=== PATIENT | male | born 2000 | race Caucasian/White ===

== ENCOUNTER 2024-12-25 09:51 | Outpatient (AMB) | payer OTHER, SELFPAY ==
--- NOTE | 2024-12-25 10:05 | A.OFFVIS_ITS ---
Intake Visit Reasons: intermittent hematuria Intake Note: New Patient is present for intermittent Hematuria Urology Rx:none Blood Thinners:none Imaging completed: none [place] Actor Required: No Accompanied by: Self / Same As Patient Allergies No Known Allergies Allergy (Verified 12/25/24 10:07) HPI Comments Details: Frankie is a pleasant male. He is a patient of Dr. Hill. He is seen for the following urologic conditions - microscopic hematuria - bladder outlet obstruction Microscopic hematuria States he has occasionally seen blood in urine Is associated with constipation Discussed use of Flomax Bladder outlet obstruction Has noticed over past 18 months that has weakness of stream Prolonged voiding time Likely trapped prostate Trial Flomax Follow-up uroflow Review of Systems Const Denies chills and Denies fever(s) Card Reports no additional complaints and Denies syncope Resp Denies cough GI Denies abdominal pain and Denies heartburn Reports as per HPI and Denies change in libido Neuro Denies syncope Psych Denies change in libido Endo Denies change in libido Physical Exam Const General: cooperative, healthy appearing, comfortable and no acute distress Orientation/consciousness: patient oriented x3 HEENT Face and sinus: Yes normal facial exam Mouth: moist mucous membranes Neck Neck: Yes normal visual inspection, Yes full ROM and Yes trachea midline Chest Chest palpation & inspection: normal inspection of the chest Resp Effort & Inspection: normal respiratory effort, able to speak in complete sentences and no respiratory distress GI Inspection: Yes normal to inspection Back/Spine/Pelvis Cervical Spine: normal cervical lordosis Thoracic/Lumbar Spine: thoracic and lumbar spine normal to inspection Skin General skin exam: no rashes or lesions noted Neuro General: patient oriented x3, gait normal, tone normal and moves all extremities Extrem General: Yes normal to inspection and Yes capillary refill normal Assessment & Plan Assessment & Plan (1) Bladder outlet obstruction: Code(s): N32.0 - Bladder-neck obstruction Category: Medical Plan Trial of tamsulosin Follow-up uroflow Medications: New tamsulosin (Flomax) 0.4 mg PO BEDTIME 30 tabs 2RF 30 days N32.0 - Bladder-neck obstruction Patient Instructions: This note is constructed using voice recognition software. While every effort has been made to ensure accuracy ground water pump installer errors may have been included. Imaging studies, laboratory and physical exam results were discussed and reviewed in detail. No major barriers to patient understanding were identified. An opportunity to ask questions regarding the treatment plan was provided. All questions were answered. The patient expressed understanding and agreement with the above treatment plan. The patient is aware they should contact our office by phone for worsening of their current condition or the appearance of new urologic symptoms. Compliance is encouraged with any medications and followup testing that is ordered. It is a privilege to participate in the urologic care of your patient. If you have any questions or concerns regarding treatment for the above conditions, or other urologic issues, please do not hesitate to contact me. The office telephone contact is [phone]. Sincerely, Dr Michael Quintero MD, [facility] - Urology Compassionate Specialist Care for the Genitourinary System Coding Level of Care Code New Pt Level 4 (18049) Diagnoses Bladder outlet obstruction N32.0
--- OUTSIDE RECORDS SUMMARY | 2024-12-25 10:55 | XMS_ITS | Continuity of Care Document ---
Author Name [facility] Organization [facility] Care Team Providers Care Textbook Associate Name Role Phone [facility] Unavailable Unavailable Problems Combined list of problems from Department of Defense and Veterans Affairs facilities. It does not include entries that were removed or entered in error. Problem Status Onset Date Problem Type Date of Resolution Comments Source Pseudofolliculitis barbae Active 5 Diagnosis 0310C-AF-C- [facility] [employer] [employer] EXAM/ASSESSMENT, OCCUPATIONAL, RN REVIEW PERIODIC HEALTH ASSESSMENT (PHA) Active 5 Diagnosis 0310C-AF-C- [facility] [employer] EXAM/ASSESSMENT, OCCUPATIONAL, RN REVIEW PERIODIC HEALTH ASSESSMENT (PHA) Active 4 Diagnosis 0804C-18th [facility] NA EXAM/ASSESSMENT, OCCUPATIONAL, RN REVIEW PERIODIC HEALTH ASSESSMENT (PHA) Active 9 Condition [facility] Pseudofolliculitis barbae Active Condition 0310C-AF-C- [facility] [employer] Medications Combined list of outpatient medications from Department of Defense and Veterans Affairs facilities.Medications provided include 1) outpatient medications from the last 15 months, and 2) patient-reported medications. Medication Details Route Status Patient Instructions Prescription Expires Prescription Number Last Dispense Date Ordering Provider Order Date Order Qty Source docusate-se nna 50 mg-8.6 mg oral tablet TAKE 2 TABLETS BY MOUTH AT BEDTIME NEEDED FOR CONSTIPA TION, # 8 EA, 1 total refill(s ), Acute Complet ed 05/30/2023 3 2023 8.0 Ambulat ory Pharmac y polyethylen e glycol 3350 oral powder for reconstitut ion DISSOLVE 1 CAPFUL (17GM) IN 8 OZ OF FLUID AND DRINK NEEDED FOR CONSTIPA TION, # 476 g, 1 total refill(s ), Acute Complet ed 05/30/2023 3 2023 476.0 Ambulat ory Pharmac y Allergies, Adverse Reactions, Alerts Combined list of allergies from Department of Defense and Veterans Affairs facilities. It does not include entries that were removed or entered in error. Substance Category Reaction Severity Reaction type Status Date Reported Comments Source No Known Allergies Drug allergy (disorder) active 04/12/2022 [place] [address] Immunizations Combined list of available immunizations from the Department of Defense and Veterans Affairs facilities. Immunization Series Date Given Administered By Site Reaction Lot Number CVX Code Drug Talent Advisor Status Comments Source influenza virus vaccine, inactivated 2023 ADELA Turner morris, right (delt oid) [id number] Mobile[employer], Erenis complet ed influenza virus vaccine, inactivat ed 02/01/24 Given 0804C-1 8th [facility] [place] anthrax vaccine 1 2022 [id number] Emergent BioDefense [facility] (MIP) complet ed anthrax vaccine DoD typhoid Vi capsular polysaccharid e vaccine 1 2022 [id number] 101 Sanofi Pasteur (PMC) complet ed typhoid Vi capsular polysacch aride vaccine DoD Influenza, injectable, quadrivalent, preservative free [id number] (SKB) complet ed Influenza , injectabl e, quadrival ent, preservat anne free DoD Cymro Encephalitis vaccine for intramuscular administratio n 3 2021 [id number] 134 Valneva (SONAM) complet ed Cymro Encephali tis vaccine for intramusc ular administr ation DoD SARS-COV-2 (COVID-19) vaccine, mRNA, spike protein, LNP, preservative free, 100 mcg or 50 mcg dose 3 2021 [id number] 207 Moderna [employer] Inc. (MOD) complet ed SARS-COV- 2 (COVID-19 ) vaccine, mRNA, spike protein, LNP, preservat anne free, 100 mcg or 50 mcg dose DoD influenza, injectable, quadrivalent 2020 [id number] 158 GlaxoSmithKli sd complet ed influenza , injectabl e, quadrival ent 01/20/21 Given Ambulat ory Pharmac y Human Papillomaviru s 9-valent vaccine 2020 [id number] 165 [employer] & Company Inc complet ed Human Papilloma virus 9-valent vaccine 01/20/21 Given Ambulat ory Pharmac y influenza, injectable, quadrivalent, contains preservative 1 2020 [id number] 158 SmithIon Torrentine (SKB) complet ed influenza , injectabl e, quadrival ent, contains preservat anne DoD Human Papillomaviru s 9-valent vaccine 1 2020 [id number] 165 Merck (MSD) complet ed Human Papilloma virus 9-valent vaccine DoD hepatitis A-hepatitis B vaccine 2020 [id number] 104 Telemed[employer] Solutions LLCWedge Buster sd complet ed hepatitis A-hepatit is B vaccine 12/31/20 Given Ambulat ory Pharmac y Cymro Encephalitis IM 2020 [id number] 0E 134 Valneva complet ed Cymro Encephali tis IM 12/31/20 Given Ambulat ory Pharmac y hepatitis A and hepatitis B vaccine 3 2020 [id number] 104 LukasKahlotus (SKB) complet ed hepatitis A and hepatitis B vaccine DoD Cymro Encephalitis vaccine for intramuscular administratio n 2 2020 [id number] 0E 134 Valneva (SONAM) complet ed Cymro Encephali tis vaccine for intramusc ular administr ation DoD Cymro Encephalitis IM 2020 [id number] 0E 134 Valneva complet ed Cymro Encephali tis IM 10/26/20 Given Ambulat ory Pharmac y Cymro Encephalitis vaccine for intramuscular administratio n 1 2020 [id number] 0E 134 Valneva (SONAM) complet ed Cymro Encephali tis vaccine for intramusc ular administr ation DoD COVID Vaccine Pfizer 2020 [id number] 208 PFIZER complet ed COVID Vaccine Pfizer 08/13/20 Given Ambulat ory Pharmac y SARS-COV-2 (COVID-19) vaccine, mRNA, spike protein, LNP, preservative free, 30 mcg/0.3mL dose 2 2020 [id number] 208 Pfizer, Inc (PFR) complet ed SARS-COV- 2 (COVID-19 ) vaccine, mRNA, spike protein, LNP, preservat nane free, 30 mcg/0.3mL dose DoD COVID Vaccine Pfizer 2020 [id number] 208 PFIZER complet ed COVID Vaccine Pfizer 07/23/20 Given Ambulat ory Pharmac y SARS-COV-2 (COVID-19) vaccine, mRNA, spike protein, LNP, preservative free, 30 mcg/0.3mL dose 1 2020 [id number] 208 Pfizer, Inc (PFR) complet ed SARS-COV- 2 (COVID-19 ) vaccine, mRNA, spike protein, LNP, preservat anne free, 30 mcg/0.3mL dose DoD hepatitis A-hepatitis B vaccine 2020 [id number] 104 GlaxoSmithKli ne complet ed hepatitis A-hepatit is B vaccine 06/30/20 Given Ambulat ory Pharmac y hepatitis A and hepatitis B vaccine 1 2020 [id number] 104 [facility] (SKB) complet ed hepatitis A and hepatitis B vaccine DoD hepatitis A-hepatitis B vaccine 2020 [id number] 104 GlaxoSmithKli ne complet ed hepatitis A-hepatit is B vaccine 05/20/20 Given Ambulat ory Pharmac y hepatitis A and hepatitis B vaccine 1 2020 [id number] 104 [facility] hepatitis A and hepatitis B vaccine DoD adenovirus vaccine, live 2020 [id number] 143 Teva Pharmaceutica ls complet ed adenoviru s vaccine, live 05/13/20 Given Ambulat ory Pharmac y tetanus, diphtheria, acellular pertu is 2020 [id number] 115 [facility] complet ed tetanus, diphtheri a, acellular pertussis 05/13/20 Given Ambulat ory Pharmac y influenza, injectable, quadrivalent- pf 2020 [id number] 077 150 Seqirus complet ed influenza , injectabl e, quadrival ent-pf 05/13/20 Given Ambulat ory Pharmac y poliovirus vaccine, inactivated 2020 [id number] 10 sanofi pasteur complet ed polioviru s vaccine, inactivat ed 05/13/20 Given Ambulat ory Pharmac y meningococcal A,C,Y,W-135 (MCV4P) 2020 [id number] 114 sanofi pasteur complet ed meningoco ccal A,C,Y,W-1 35 (MCV4P) 05/13/20 Given Ambulat ory Pharmac y poliovirus vaccine, inactivated 1 2020 [id number] 10 Sanofi Pasteur (PMC) complet ed polioviru s vaccine, inactivat ed DoD meningococcal polysaccharid e (groups A, C, Y and W-135) diphtheria toxoid conjugate vaccine (MCV4P) 1 2020 [id number] 114 Sanofi Pasteur (PMC) complet ed meningoco ccal polysacch aride (groups A, C, Y and W-135) diphtheri a toxoid conjugate vaccine (MCV4P) DoD tetanus toxoid, reduced diphtheria toxoid, and acellular pertu is vaccine, adsorbed 1 2020 [id number] 115 DigitalMR (SKB) complet ed tetanus toxoid, reduced diphtheri a toxoid, and acellular pertussis vaccine, adsorbed DoD Adenovirus, type 4 and type 7, live, oral 1 2020 [id number] 6 143 [facility] (BRR) complet ed Adenoviru s, type 4 and type 7, live, oral DoD Influenza, injectable, quadrivalent, preservative free 1 2020 [id number] 077 150 Seqirus (SEQ) complet ed Influenza , injectabl e, quadrival ent, preservat anne free DoD measles virus vaccine 0 2020 05 () Not Given measles virus vaccine DoD rubella virus vaccine 0 2020 06 () Not Given rubella virus vaccine DoD mumps virus vaccine 0 2020 07 () Not Given mumps virus vaccine DoD varicella virus vaccine 0 2020 21 () Not Given varicella virus vaccine DoD Results Combined list of recent chemistry, hematology and other laboratory results from Department of Defense and Veterans Affairs, ranging from 15 months to all on record, depending upon the facility. Order Name Results Value Reference Range Date Interpretation Specimen Comments Source Infectiou s Disease HIV-1/O/2 Non-Reac tive 3 (06/11/24 9:43 AM) 06/11 N Interpretiv e Data: INTERPRETAT ION: This method is a screening procedure for the detection of HIV p24 Antigen and Antibodies to HIV-1, including Group O, and/or HIV-2. NON-REACTIV E: HIV-1 antigen and HIV-1 / HIV-2 antibodies were not detected. No laboratory evidence of HIV infection. A negative test result does not exclude the possibility of exposure to or infection with HIV. HIV antibodies and/or p24 antigen may be undetectabl e in some stages of the infection and in some clinical conditions. If acute HIV infection is suspected, consider submitting another specimen to a reference laboratory for HIV-1 RNA. SCREEN REACTIVE - CONFIRMATIO N TO FOLLOW: Possible presence of HIV-1antibo dies, HIV-2 antibodies and/or HIV-1 p24 antigen. Specimen will reflex to the confirmatio n testing that fulfills the Center for Disease Control and Prevention' s HIV diagnostic algorithm. Refer to [facility] Lab Guide for additional information : [email or web address] x Testing performed by Vel marcelino. 5600A-US AFSAM EPILAB Miscellan eous Sendouts Repository Sample Received (06/11/24 9:43 AM) 06/11 N 5600A-[facility] AFS[facility] EP[facility] Chemistry PSA Total 0.750 ng/mL 05/30 Interpretiv e Data: The use of biotin supplements greater than 10 mg/day has been shown to affect the accuracy of this test. Providers should encourage patients to cease all biotin supplements for a minimum of 72 hours before phlebotomy to avoid interferenc e. 0621A-[facility] [place] [facility] UA Blood Negative (05/30/23 11:03 AM) 05/30 N 0804A-18 [facility] [place] Urinalysi s UA Protein Negative (05/30/23 11:03 AM) 05/30 N 0804A-18 [facility] [place] Urinalys[facility] s UA Spec Sunset 1.010 *NA* (05/30/23 11:03 AM) 05/30 0804A-18 th [facility] [place] [facility]inalys[facility] UA Clarity CLEAR 05/30 0804A-18 [facility] [place] Urinalysi s UA Urobilinog en 0.2 (05/30/23 11:03 AM) 05/30 N 0804A-18 [facility] [place] Urinalysi s UA Bili Negative (05/30/23 11:03 AM) 05/30 N 0804A-18 [facility] [place] Urinalys[facility] s UA Color Yellow (05/30/23 11:03 AM) 05/30 N 0804A-18 [facility] [place] Urinalysi s UA Micro Ind? Not Indicate d *NA* (05/30/23 11:03 AM) 05/30 0804-18 [facility] [place] Urinalysi s UA Glucose Negative (05/30/23 11:03 AM) 05/30 N 0804-18 [facility] [place] Urinalysi s UA Ketones Negative 2 (05/30/23 11:03 AM) 05/30 N Interpretiv e Data: Positive Glucose critical when Ketones are >40 04A-18 [facility] [place] Urinalysi s UA Leuk Esterase Negative (05/30/23 11:03 AM) 05/30 N 0804-18 [facility] [place] Urinalysi s UA Nitrite Negative (05/30/23 11:03 AM) 05/30 N 0804-18 [facility] [place] Urinalysi s UA pH 6.5 *NA* (05/30/23 11:03 AM) 05/30 08-18 [facility] [place] Hematolog y Hemoglobin 15.5 g/dL 13.0 - 17.0 05/30 N 0804-18 [facility] [place] Hematolog y RDW 12.4 % 12.8 - 16.9 05/30 L 0804-18 [facility] [place] Hematolog y RBC 5.3 10^6/uL 3.6 - 5.1106 05/30 H 0804-18 [facility] [place] Hematolog y MCHC 33.7 32.0 - 35.5 05/30 N 0804-18 [facility] [place] Hematolog y MCH 29.0 pg 24.6 - 31.2 05/30 N 0804-18 [facility] [place] Hematolog y MPV 9 fL 05/30 0804-18 [facility] [place] Hematolog y WBC 8.90 10^3/uL 2.88 - 11.76624 05/30 N 0804A-18 th [facility] [place] Hematolog y Platelets 244.0 10^3/uL 164.5 - 454.3103 05/30 N 0804A-18 th [facility] [place] Hematolog y MCV 86.2 74.6 - 90.5 05/30 N 0804A-18 th [facility] [place] Hematolog y Hematocrit 46.0 % 31.0 - 45.3 05/30 H 0804A-18 th [facility] [place] Hematolog y Neutro Absolute 7 10^3/uL 1 - 7103 05/30 N 0804A-18 [facility] [place] Hematolog y Basophil % Auto 0.50 % 0.00 - 0.37 05/30 H 0804A-18 th [facility] [place] Hematolog y Eosinophil % Auto 2.00 % 0.00 - 8.88 05/30 N 0804A-18 th [facility] [place] Hematolog y [place] Absolute 1 10^3/uL 0 - 1103 05/30 N 0804A-18 th [facility] [place] Hematolog y Lymph Absolute 1 10^3/uL 1 - 3103 05/30 N 0804A-18 th [facility] [place] Hematolog y Neutrophil % Auto 75.30 % 21.68 - 73.50 05/30 H 0804A-18 th [facility] [place] Hematolog y nRBC Absolute 0 05/30 0804A-18 th [facility] [place] Hematolog y nRBC % Auto 0 05/30 0804A-18 th [facility] [place] Hematolog y Eos Absolute 0 10^3/uL 0 - 0103 05/30 N 0804A-18 [facility] [place] Hematolog y Monocyte % Auto 8.90 % 2.91 - 11.07 05/30 N 0804A-18 th [facility] [place] Hematolog y Lymphocyte % Auto 13.30 % 15.09 - 66.93 05/30 L 0804A-18 th [facility] [place] Hematolog y MDW 17 0 - 20 05/30 N 0804A-18 [facility] [place] Vital Signs Combined list of inpatient and outpatient Vital Signs from Department of Defense and Veterans Affairs, ranging from 12 months to all on record, depending upon the facility. Vital Sign Value Date Comments Source Systolic Blood Pressure 133 mm[Hg] 05/30/2023 01:17:00 0804C[facility] Diastolic Blood Pressure 86 mm[Hg] 05/30/2023 01:17:00 0804C-[facility]th [facility] Blood Pressure Manual Automatic 05/30/2023 01:17:00 0804C-[facility] Mean Arterial Pressure, Cuff (Calc) 102 mm[Hg] 05/30/2023 01:17:00 0804C-[facility] Peripheral Pulse Rate 72 bpm 05/30/2023 01:17:00 0804C[facility]th [facility] Respiratory Rate 15 br/min 05/30/2023 01:17:00 0804C[facility]th [facility] Temperature Oral 36.9 Jessica 05/30/2023 01:17:00 0804C-[facility]th [facility] BP Site Right arm 05/30/2023 01:17:00 0804C -18th [facility] Encounters Combined list of: 1) Encounters from Department of Veterans Affairs facilities going backup to the last 18 months, not all VA inpatient encounters are included; 2) Encounters from the Department of Defense facilities going backup to 280 months. Location Location Details Encounter Type Encounter Number Reason For Visit Attending Provider ADM Date DC Date Status Disposition [place] [address]([facility] Ryder Anna) OUTPATIENT [id number] Notes Entered by: ISAEL PATTERSON 21 May 2020 1133 ------- ------- ------- ------- -- REZA Veras 05/21 [facility] w[facility] [place] [place] [address] Mike Anna) [employer](BO C) OUTPATIENT [id number] vOSC 364 Tawanda 11/12 MOISÉS MILIAN 08/31 Released w/o Limitations [employer](B [facility]) [facility]) OUTPATIENT [id number] Annual A WILBERT CRUZ 12/31 Released w/o Limitations [facility] ([facility]) [facility](K a [facility]) OUTPATIENT [id number] Audio-- 217A WILL ANDERS 01/20 Released w/o Limitations [facility]) OUTPATIENT [id number] Notes Entered by: ABBIE MOLINA 21 Jan 2021 0835 ------- ------- ------- ------- -- TRI-SER VICE MARTINEZ/CHRISTOPHER RAO 01/20 Released w/o Limitations [facility] ([facility]) [facility]( a Pandemic Virus) TELE CONSULT [id number] Notes Entered by: SHARAN KRUSE 06 Jun 2021 1541 ------- ------- ------- ------- -- Contact with and (suspec bernardo) exposur e to COVID-1 9. CHRISTOPHER WYNN 06/06 [facility] ( Pandemi c Virus) [facility]) OUTPATIENT [id number] Annual MHA-P WILBERT CRUZ 01/09 Released w/o Limitations [facility] ([facility]) [facility]) OUTPATIENT [id number] Audio-- 217A KOLBY EPPS 01/11 Released w/o Limitations [facility] ( Hearing [facility] ation) [facility]) OUTPATIENT [id number] Notes Entered by: SAUNDRA BORGES 14 Feb 2022 1549 ------- ------- ------- ------- -- pha due/JCF CHRISTOPHER WYNN 02/14 Released w/o Limitations [facility]) [facility] D Team) OUTPATIENT [id number] Notes Entered by: Odell VELASCO 12 Apr 2022 0720 ------- ------- ------- ------- -- Initial PFB GLADIS Adamson 04/11 Released w/o Limitations [facility] ([facility] D Team) [facility]( a [facility]) OUTPATIENT [id number] Audio -- 217A KOLBY EPPS 12/21 Released w/o Limitations [facility] ( Hearing [facility] ation) [facility] D Team) OUTPATIENT [id number] COLD SYMPTOM S + CONSTIP ATION CAUSING STOMACH PAIN KIMBERLY WASHINGTON 01/24 Sick at Home/Quarter s [facility] ([facility] D Team) [facility]) OUTPATIENT [id number] Annual A WILBERT CRUZ 02/16 Released w/o Limitations [facility] ([facility]) [facility] D Team) OUTPATIENT [id number] PHA DUE CHRISTPOHER WYNN 02/19 Released w/o Limitations [facility] ([facility] D Team) 0804C-18t h [facility] CHARLNIE Dental [id number] DAYVERSONS T PHARD 01/14 Discharge Disposition: Home or Self Care 0804C-1 8th [facility] [place] 0804C-18t h [facility] [id number] EXAM/ SESSMYORDAN T, OCCUPAT IONAL, RN REVIEW ALLAN Rea HEALTH ASSESSM ENT ([facility]) WILBERT Farley DDADIVAS 01/29 Discharge Disposition: Home or Self Care 0804C-1 8th [facility] [place] 0804C-18t h MEDGRP-YONI OLIVIER Mass Vaccine [id number] 01/31 0804C-1 8th MEDGRP- TAWANDA -AF- [facility] [id number] Cammyf jes oakley, EXAM/ SESSMEN T, OCCUPAT IONAL, RN REVIEW ALLAN C HEALTH ASSESSM ENT (PHA) FRANCISNARAYAN BBOUD 06/12 Discharge Disposition: Home or Self Care 0C-A F-C66t h [facility] [employer] 8344R-439 AMDS Outpatient [id number] MARQUITA HEATONSamina 06/20 Discharge Disposition: Home or Self Care 8344R-4 39 AMDS Procedures Combined list of: 1) Procedures from Department of Veterans Affairs facilities going back up to thelast 18 months, not all VA non-surgical procedures are included; 2) All procedures from the Department of Defense facilities. Procedure Procedure Type Code Date Perfomer Comments Sourc e WTEx2 -AF-C [facility] Nasal fracture repair- In 8th grade. C [facility] [employer] THERAPEUTIC, PROPHYLACTIC, OR DIAGNOSTIC INJECTION (SPECIFY SUBSTANCE OR DRUG); SUBCUTANEOUS OR INTRAMUSCULAR 05/21/19 21 DoD ADMINISTRATION OF PATIENT-FOCUSED HEALTH RISK ASSESSMENT INSTRUMENT (EG, HEALTH HAZARD APPRAISAL) WITH SCORING AND DOCUMENTATION, PER STANDARDIZED INSTRUMENT 02/23/20 23 DoD ADMINISTRATION OF PATIENT-FOCUSED HEALTH RISK ASSESSMENT INSTRUMENT (EG, HEALTH HAZARD APPRAISAL) WITH SCORING AND DOCUMENTATION, PER STANDARDIZED INSTRUMENT 02/21/20 23 [facility] PATIENT EDUCATION, NOT OTHERWISE CLASSIFIED, NON-PHYSICIAN PROVIDER, INDIVIDUAL, PER SESSION 12/23/19 23 [facility] ADMINISTRATION OF PATIENT-FOCUSED HEALTH RISK ASSESSMENT INSTRUMENT (EG, HEALTH HAZARD APPRAISAL) WITH SCORING AND DOCUMENTATION, PER STANDARDIZED INSTRUMENT 02/15/20 22 DoD PURE TONE AUDIOMETRY (THRESHOLD), AUTOMATED; AIR ONLY 01/12/20 22 DoD BRIEF COMM TECH-BASE SERV,E.G. VIRT CHK-IN,BY PHYS/OTH QUAL HCP,RPT E&M SERV,PROV TO EST PT,NOT ORIG FRM REL E/M SERV PROV W/IN PREV 7DAY NOR LEAD TO E/M SRV/PX W/IN NEXT 24HR/SOON SHELLY; 5-10 MIN DISC 01/10/20 [facility] ADMINISTRATION OF PATIENT-FOCUSED HEALTH RISK ASSESSMENT INSTRUMENT (EG, HEALTH HAZARD APPRAISAL) WITH SCORING AND DOCUMENTATION, PER STANDARDIZED INSTRUMENT 01/22/20 [facility] PURE TONE AUDIOMETRY (THRESHOLD), AUTOMATED; AIR ONLY 01/21/20 [facility] ADMINISTRATION OF PATIENT-FOCUSED HEALTH RISK ASSESSMENT INSTRUMENT (EG, HEALTH HAZARD APPRAISAL) WITH SCORING AND DOCUMENTATION, PER STANDARDIZED INSTRUMENT 01/01/20 21 [facility] Supervised Injection Intramuscular Supervised Injection Intramuscular [address] [facility] Brief communication technology-based service, e.g. virtual check-in, by a physician or other qualified health care profe ada who can report evaluation and management services, provided to an established patient, not originating from a related E/M service provided within the previous 7 days nor leading to an E/M service or procedure within the next 24 hours or soonest available appointment; 5-10 minutes of medical discu REY Espinoza [facility] Patient education, not otherwise cla ified, non-physician provider, individual, per se WILL Melgar [facility] Threshold Audiogram (Pure Tone) Automated Threshold Audiogram (Pure Tone) Automated 0208T WILL ANDERS [facility] Social History Combined list of available smoking, tobacco, and other social history from Department of Defense and Veterans Affairs facilities. Social History Type Response Date Comment Formerly [facility] e Sex Representation Male (finding) 02/25/2021 Un known Organization Tobacco Cigarette use: Never-cigarette user. Other Tobacco use: Never-other tobacco user (not cigarettes). Ambulatory Pharmacy Sexual Orientation Ambula tory Pharmacy Gender identity Ambulator y Pharmacy This section is an empty social history section. [facility] Assessment and Plan Combined list of future care activities from Department of Defense and Veterans Affairs facilities (e.g., assessment and plan notes, appointments, orders, and referrals). Additional future care activities may be listed in the Plan of Care section. Result Assessment and Plan Date Source Assessment and Plan Extracted from:Title : Annual DoD PHA ONLY Author: SAMUEL RIOS NP Date: 06/12/24 1. E XAM/ASSESSMENT, OCCUPATIONAL, RN REVIEW PERIODIC HEALTH ASSESSMENT (PHA) This encounter contains a review of the SM's chronic and active medical conditions since the date of the last PHA on file. SM present for virtual encounter. Medication reconciled a nd allergies verified today during this virtual encounter. Record reviewed since last PHA; no retention disqualifying diagnoses or conditions. IMR- Green. Profile- Y es, shaving profile for PFB expires 11 Apr 2027. +WWQ. This MHA/PHA is for screening purposes only, and is Not to replace a face to face appointment with PCM or other specialty care i f needed. SM was informed that i f there are any h ealth concerns, i t is the SM's responsibility to schedule an appointment with PCM or specialty c are for evaluation and management. ? 2. P seudofolliculitis barbae C ontinue shaving limitations per DR profile; continue F/U with PCM for management. Samuel Rios CTR F [employer]OWERPL[employer] SUPERVISOR-C [facility] [place] Provider Flight Medicine [address] Erniej[place] [address] Office- [phone] Extracted from:Title: Annual MHA Author: REY CRUZ PA Date: 01/29/24 EXAM/ASSESSMENT, OCCUPATIONAL, RN REVIEW PERIODIC HEALTH ASSESSMENT (PHA) -Member denies any mental health or ETOH issues at this time that interferes with quality of life or job performance. -member does not feel a need to have a referral placed for mental health reasons at this time and is aware of the many resources available if needed. -member advised to f/u with his/her PCM f or any medical/mental health issues o r a mental health provider if issues do arise o r worsens -member verbalized understanding with the intent to comply -annual MHA completed in 5min. in [facility] Rey Cruz, CTR, PA-C DRHA/MHA-Provider [employer] [place] , [facility] Extracted from:Title: [facility] - Painful micturition/hematuria x6 mo Author: CHRISTOPHER WYNN PA-C Date: 05/29/23 1. D ysuria - Patient with over 6 months now of intermittent hesitancy with urination with overflow painful micturition, with occasional hematuria, and persistent hesitancy as listed above with urination. - We will rule out any types of infections patient has had negative STI workup in the last 6 months and has had no new or any partners since last workup per patient report. - We will rule out any masses or enlargement of the prostate and any bladder or abdominal masses with ultrasound. - Follow up in 4-6 weeks after US completion and lab completion to discuss results. - Patient verbalizes understanding and agrees to the current treatment plan discussed. Ordered: CBC w/ Diff Prostate Specific Antigen Urinalysis with Microscopic, if indicated US Pelvis Comp w/Transvag if indicated 2. H ematuria Ordered: CBC w/ Diff Prostate Specific Antigen Urinalysis with Microscopic, if indicated US Pelvis Comp w/Transvag if indicated 3. S tress urinary incontinence Ordered: CBC w/ Diff Prostate Specific Antigen Urinalysis with Microscopic, if indicated US Pelvis Comp w/Transvag if indicated -Frankie magana understanding and acceptance of care plan as discussed. No further questions were asked. Andrew reece time spent caring for the patient today was 35 minutes. This includes time spent before the visit reviewing the chart (5 mins.), time spent during the visit (20 mins.), and time spent after the visit on documentation (10 mins.), etc. Christopher Wynn, ISHMAELS, Capt, BSC, [employer] [facility] Primary Sheet Metal Superintendent (PCM) [employer], SGXP [facility], [facility] 12/25/2024 [id number] Assessment and Plan Extracted from:Title : Annual DoD PHA ONLY Author: SAMUEL RIOS NP Date: 06/12/24 1. E XAM/ASSESSMENT, OCCUPATIONAL, RN REVIEW PERIODIC HEALTH ASSESSMENT (PHA) This encounter contains a review of the SM's chronic and active medical conditions since the date of the last PHA on file. SM present for virtual encounter. Medication reconciled a nd allergies verified today during this virtual encounter. Record reviewed since last PHA; no retention disqualifying diagnoses or conditions. IMR- Green. Profile- Y es, shaving profile for PFB expires 11 Apr 2027. +WWQ. This MHA/PHA is for screening purposes only, and is Not to replace a face to face appointment with PCM or other specialty care i f needed. SM was informed that i f there are any h ealth concerns, i t is the SM's responsibility to schedule an appointment with PCM or specialty c are for evaluation and management. ? 2. P seudofolliculitis cele Rea ontinue shaving limitations per DR profile; continue F/U with PCM for management. Samuel Rios CTR F [employer] POWERPLANT SUPERVISOR-C [facility] [place] Provider Flight Medicine [address] [place] [address] Office- [phone] Extracted from:Title: Annual MHA Author: REY CRUZ PA Date: 01/29/24 EXAM/ASSESSMENT, OCCUPATIONAL, RN REVIEW PERIODIC HEALTH ASSESSMENT (PHA) -Member denies any mental health or ETOH issues at this time that interferes with quality of life or job performance. -member does not feel a need to have a referral placed for mental health reasons at this time and is aware of the many resources available if needed. -member advised to f/u with his/her PCM f or any medical/mental health issues o r a mental health provider if issues do arise o r worsens -member verbalized understanding with the intent to comply -annual MHA completed in 5min. in [facility] Rey Cruz, CTR, PA-C DRHA/MHA-Provider [employer], [facility] Extracted from:Title: [facility] - Painful micturition/hematuria x6 mo Author: CHRISTOPHER WYNN PA-C Date: 05/29/23 1. D ysuria - Patient with over 6 months now of intermittent hesitancy with urination with overflow painful micturition, with occasional hematuria, and persistent hesitancy as listed above with urination. - We will rule out any types of infections patient has had negative STI workup in the last 6 months and has had no new or any partners since last workup per patient report. - We will rule out any masses or enlargement of the prostate and any bladder or abdominal masses with ultrasound. - Follow up in 4-6 weeks after US completion and lab completion to discuss results. - Patient verbalizes understanding and agrees to the current treatment plan discussed. Ordered: CBC w/ Diff Prostate Specific Antigen Urinalysis with Microscopic, if indicated US Pelvis Comp w/Transvag if indicated 2. H ematuria Ordered: CBC w/ Diff Prostate Specific Antigen Urinalysis with Microscopic, if indicated US Pelvis Comp w/Transvag if indicated 3. S tress urinary incontinence Ordered: CBC w/ Diff Prostate Specific Antigen Urinalysis with Microscopic, if indicated US Pelvis Comp w/Transvag if indicated -Frankie magana understanding and acceptance of care plan as discussed. No further questions were asked. Andrew reece time spent caring for the patient today was 35 minutes. This includes time spent before the visit reviewing the chart (5 mins.), time spent during the visit (20 mins.), and time spent after the visit on documentation (10 mins.), etc. SHAKIR Duckworth, Capt, BSC, [employer] [facility] Primary Sheet Metal Superintendent (PCM) [employer], [facility], [facility] 12/25/2024 [facility] [place] [address] Functional Status Combined list of recent functional and cognitive assessments recorded at Department of Defense and Veterans Affairs (VA).VA Functional [employer] Measurement (FIM) Scale: 1 = Total Assistance (Subject = 0% +), 2 = Maximal Assistance (Subject = 25% +), 3 = Moderate Assistance (Subject = 50% +), 4 = Minimal Assistance (Subject = 75% +), 5 = Supervision, 6 = Modified [employer] (Device), 7 = Complete [employer] (Timely, Safely). Assessment Date/Time Source Assessment Type Assessment Skill Assessment Score Assessment Details No data available for this section
--- OUTSIDE RECORDS SUMMARY | 2024-12-25 11:00 | XMS_ITS | Clinical Summary ---
Author Organization [address] Address [address] [place] [address] Phone Care Team Providers Care Bale Opener Name Role Phone Petey Hill MD Primary Care Provider [phone] Allergies No known active allergies Medications No known medications Active Problems Problem Noted Date Diagnosed Date Family history of rheumatoid arthritis Family history of bone cancer 10/09/2024 Hematuria 10/09/2024 Must strain to pass urine 10/09/2024 Weak urine stream 10/09/2024 Encounters Date Type Department Care Team Description 10/09/2024 6:52 PM EDT - 10/09/2024 11:59 PM EDT Hospital Encounter Radiology Department - [address] [phone] Hematuria, unspecified type; Weak urine stream; Must strain to pass urine Discharge Disposition: Home or Self Care 10/09/2024 3:30 PM EDT Office Visit Adult Medicine [address] [phone] Petey Hill MD Hematuria, unspecified type (Primary Dx); Family history of bone cancer; Family history of rheumatoid arthritis; Elevated blood pressure reading; Weak urine stream; Must strain to pass urine 10/03/2024 Telephone Adult Medicine [address] [phone] Petey Hill MD from Last 3 Months Social History Tobacco Use Types Packs/Day Years Used Date Smoking Tobacco: Never Assessed Sex and Gender Information Value Date Recorded Sex Assigned at Not on file Legal Sex Male 1:09 PM EDT Gender Identity Not on file Sexual Orientation Not on file Last Filed Vital Signs Vital Sign Reading Time Taken Comments Blood Pressure 133/94 10/09/2024 3:04 PM EDT Pulse 84 10/09/2024 3:04 PM EDT Temperature 36.3 C (97.3 F) 10/09/2024 3:04 PM EDT Respiratory Rate 20 10/09/2024 3:04 PM EDT Oxygen Saturation - - Inhaled Oxygen Concentration - - Weight 88.9 kg (196 lb) 10/09/2024 3:04 PM EDT Height 172.7 cm (5' 8 ) 10/09/2024 3:04 PM EDT Body Mass Index 29.8 10/09/2024 3:04 PM EDT Plan of Treatment Upcoming Encounters Date Type Department Care Team (Late st Contact Info) Description 01/15/2025 5:00 PM EDT Office Visit Adult Medicine [address] [phone] Petey Hill MD [address] [place], [place] 05/05/2025 11:00 AM EST Office Visit Adult [address] [phone] Petey Hill MD [address] [place] [address] Health Maintenance Due Date Last Done Comments Meningococcal B Vaccine (1 of 2 - Standard) 2018 IPV Vaccines (2 of 3 - Adult catch-up series) 06/10/2020 05/13/2020 HPV Vaccines (2 - Male 3-dose series) 02/17/2021 01/20/2021 COVID-19 Vaccine ( - season) 2023 08/19/2021, 08/13/2020, 07/23/2020 Depression Screening 04/30/2024 HIV Screening 10/03/2024 Hepatitis C Screening 10/03/2024 Social Influencers of Health Screening 10/03/2024 Influenza Vaccine (#1) 2024 4, 02/13/2022, 01/20/2021, Additional history exists DTaP,Tdap,and Td Vaccines (2 - Td or Tdap) 05/13/2030 05/13/2020 Meningococcal ACWY Vaccine Completed 05/13/2020 Hepatitis A Vaccines Completed 12/31/2020, 06/30/2020, 05/20/2020 Hepatitis B Vaccines Completed 12/31/2020, 06/30/2020, 05/20/2020 HIB Vaccines Aged Out No longer eligi ble based on patient's age to complete this topic MMR Vaccines Aged Out No longer eligi ble based on patient's age to complete this topic Pneumococcal Vaccine: Pediatrics (0 to 5 Years) and At-Risk Patients (6 to 49 Years) Aged Out No longer eligible based on patient's age to complete this topic RSV Immunization Patients Under 20 months Aged Out No longer eligible based on patient's age to complete this topic Varicella Vaccines Aged Out No longer eligible based on patient's age to complete this topic Procedures Procedure Name Priority Date/Time Associated Diagnosis Comments US RETROPERITONEAL COMPLETE Routine 10/09/2024 7:12 PM EDT Hematuria, unspecified type Weak urine stream Must strain to pass urine VALDEZ URINE CULTURE TUBE Routine 10/10/19 25 3:30 PM EDT Hematuria, unspecified type URINALYSIS WITH REFLEX MICROSCOPIC AND CULTURE Routine 10/09/2024 3:30 PM EDT Hematuria, unspecified type URINALYSIS WITH REFLEX MICROSCOPIC AND CULTURE Routine 10/09/2024 3:30 PM EDT Hematuria, unspecified type POC URINE NON-AUTO W/O MICRO Routine 10/09/2024 3:14 PM EDT Hematuria, unspecified type from Last 3 Months Results * US Retroperitoneal Complete (10/09/2024 7:12 PM EDT) Anatomical Region Laterality Modality Body Ultrasound 10/10/2024 10:4 9 AM EDT Impressions 10/10/2024 11:02 AM EDT 1. Unremarkable renal ultrasound 2. Mild bladder wall thickening posteriorly. Consider urological consultation if clinically indicated 3. Prostate is grossly within normal limits. -------- FINAL REPORT -------- Dictated By: Jarret Pereira Dictated Date: 10/10/2024 10:49 ET Assigned Physician: Jarret Pereira Reviewed and Electronically Signed By: Jarret Pereira Signed Date: 10/10/2024 11:02 ET Workstation ID: [id number] Transcribed By: Self Edit Transcribed Date: 10/10/2024 10:49 ET Narrative 10/10/2024 11:02 AM EDT EXAM: RENAL ULTRASOUND HISTORY: strain to pass urine, weak urine stream, blood in urine eval BPH COMPARISON: None available TECHNIQUE: Valdez scale and color Doppler images were obtained of the kidneys and bladder. FINDINGS: Right kidney: measures 10.5 cm in length and is sonographically unremarkable. Left kidney: measures 10.1 cm in length and is sonographically unremarkable. No hydronephrosis bilaterally Bladder: Bilateral ureteral jets noted. The bladder volume is 173 mL. Postvoid volume is 23 mL. There is minimal bladder wall thickening posteriorly. Prostate: The prostate measures 4.0 x 4.1 x 2.1 cm with a volume of 18 mL. Procedure Note Jarret Pereira MD - 10/10/2024 EXAM: RENAL ULTRASOUND HISTORY: strain to pass urine, weak urine stream, blood in urine evalBPH COMPARISON: None available TECHNIQUE: Valdez scale and color Doppler images were obtained of thekidneys and bladder. FINDINGS: Right kidney: measures 10.5 cm in length and is sonographicallyunremarkable. Left kidney: measures 10.1 cm in length and is sonographicallyunremarkable. No hydronephrosis bilaterally Bladder: Bilateral ureteral jets noted. The bladder volume is 173 mL.Postvoid volume is 23 mL. There is minimal bladder wall thickeningposteriorly. Prostate: The prostate measures 4.0 x 4.1 x 2.1 cm with a volume of 18mL. IMPRESSION: 1. Unremarkable renal ultrasound 2. Mild bladder wall thickening posteriorly. Consider urologicalconsultation if clinically indicated 3. Prostate is grossly within normal limits. -------- FINAL REPORT -------- Dictated By: Jarret Pereira Dictated Date: 10/10/2024 10:49 ET Assigned Physician: Jarret Pereira Reviewed and Electronically Signed By: Jarret Pereira Signed Date: 10/10/2024 11:02 ET Workstation ID: [id number] Transcribed By: Self Edit Transcribed Date: 10/10/2024 10:49 ET us Vidur Priyanka Hill MD IMG US PROCEDURES Final Res ult * (ABNORMAL) Urinalysis with reflex microscopic and culture (10/09/2024 3:30 PM EDT) Specific [place] Urine 1.024 1.003 - 1.030 LAB URINALYSIS - AUTOMATED METHOD 10/09/2024 6:44 PM [facility] pH, Urine 6.5 5.0 - 8.0 pH LAB URINALYSIS - AUTOMATED METHOD 10/09/2024 6:44 PM [facility] Leukocytes, Urine Negative Negative LAB URINALYSIS - AUTOMATED METHOD 10/09/2024 6:44 PM [facility] Nitrite, Urine Negative Negative LAB URINALYSIS - AUTOMATED METHOD 10/09/2024 6:44 PM [facility] Protein, Urine Negative <=Trace mg/dL LAB URINALYSIS - AUTOMATED METHOD 10/09/2024 6:44 PM [facility] Glucose, Urine Negative Negative mg/dL LAB URINALYSIS - AUTOMATED METHOD 10/09/2024 6:44 PM [facility] Ketones, Urine Trace(A) Negative mg/dL LAB URINALYSIS - AUTOMATED METHOD 10/09/2024 6:44 PM [facility] Urobilinogen, Urine 0.2 0.2 - 1.0 mg/dL LAB URINALYSIS - AUTOMATED METHOD 10/09/2024 6:44 PM EDT [facility] Bilirubin, Urine Negative Negative LAB URINALYSIS - AUTOMATED METHOD 10/09/2024 6:44 PM EDT [facility] Blood, Urine Negative Negative LAB URINALYSIS - AUTOMATED METHOD 10/09/2024 6:44 PM EDT [facility] Urine Urine specimen obtained by clean catch procedure / Unknown Non-blood Collection / Unknown 10/09/2024 3:30 PM EDT 10/09/2024 3:30 PM EDT Petey Hill MD LAB URINE ORDERABLES Final Result [facility] [address] [place] [address], [place] [phone] * Valdez urine culture tube (10/09/2024 3:30 PM EDT) Extra Tube Hold for add-ons. 10/09/2024 7:01 PM EDT [facility] Comment:Auto resulted. Urine Urine specimen obtained by clean catch procedure / Unknown Non-blood Collection / Unknown 10/09/2024 3:30 PM EDT 10/09/2024 3:30 PM EDT Petey Hill MD LAB URINE ORDERABLES Final Result [facility] [address] [place] [address], [place] [phone] * (ABNORMAL) POC Urine Non-Auto W/O Micro (10/09/2024 3:14 PM EDT) Nitrite UA POC Negative Negative Urobilinogen UA POC Negative Negative Protein UA POC Positive(A) Negative PH UA POC 6.0 5.0 - 9.0 Blood UA POC Negative Negative, Trace Specific [place] UA POC 1.020 1.001 - 1.035 Ketones UA POC Negative Negative Bilirubin UA POC Negative(A) Negative Glucose UA POC Normal Normal, Trace Urine Urine specimen obtained by clean catch procedure / Unknown 10/09/2024 3:14 PM EDT Petey Hill MD POINT OF CARE TEST ENTER/ED IT ORDERABLES Final Result from Last 3 Months Insurance [facility] Care Teams Bale Opener Relationship Specialty Start Date End Date Petey Hill MD [address] [place] [id number] PCP - General Internal Medicine 10/03/24
== END 2024-12-25 10:41 | disposition home or self-care (01) ==
LOC: HO.HUSH 09:51
PROVIDERS: PCP Internal Medicine; Visit Provider Urology
DX: N32.0 Bladder-neck obstruction (principal)
CPT/HCPCS: 99204

== ENCOUNTER → 2024-12-25 09:51 | Outpatient (BNVA) | payer OTHER, SELFPAY | PROVIDERS: PCP Internal Medicine; Visit Provider Urology | DX: N32.0 Bladder-neck obstruction (principal) | CPT/HCPCS: 81003; 99202 ==